=== PATIENT | male | born 1965 | race African-American/Black ===

== ENCOUNTER 2018-06-13 21:51 | Emergency (ER) | payer MEDICAID ==
[~2018-06-13] VITALS: Ht 162.6 cm; Wt 63.0 kg
[2018-06-13] MEDS ORDERED: LEVETIRACETAM 500MG PREMIX 100 ML IV ONE (23:15)
[2018-06-14 04:44] VITALS: BP 104/61
== END 2018-06-14 04:42 | disposition home or self-care (01) ==
LOC: ER 21:51
DX: R56.9 Unspecified convulsions (principal); F17.290 Nicotine dependence, other tobacco product, uncomplicated; Z98.890 Other specified postprocedural states
CPT/HCPCS: 96365; 99283; 99406; J1953

== ENCOUNTER 2018-09-20 07:22 | Emergency (ER) | payer MEDICAID ==
[~2018-09-20] VITALS: Ht 177.8 cm; Wt 75.0 kg
[2018-09-20] MEDS ORDERED: LEVETIRACETAM 1000MG/100ML 100 ML IV ONE (08:00)
[2018-09-20 08:40] LABS: BASOPHILS % 0.2 % (0.0-2.0); EOSINOPHILS % 0.1 % (0.0-5.0); HEMATOCRIT. 36.3 % (42.0-52.0); MEAN CORPUSCULAR HEMOGLOBIN 30.9 pg (28.0-32.0); MEAN CORPUSCULAR VOLUME 93.5 fL (80.0-94.0); MEAN PLATELET VOLUME 9.8 fl (7.4-10.4); MONOCYTES % 2.6 % (2.0-8.0); NEUTROPHILS % 85.1 % (40.0-76.0); PLATELET 87 x1000/uL (130-400); RED BLOOD CELL COUNT 3.88 mill/uL (4.7-6.1); RED CELL DISTRIBUTION WIDTH 18.9 % (11.6-14.6)
[2018-09-20 08:47] LABS: CHLORIDE 97 mEq/L (98-107)
[2018-09-20 08:51] LABS: ETHANOL BLOOD 20 mg/dL
[2018-09-20 08:55] LABS: PROTHROMBIN TIME 10.3 sec (9.6-11.0)
[2018-09-20 11:22] LABS: CLARITY URINE CLEAR (CLEAR); COLOR URINE YELLOW (YELLOW); KETONES URINE 1+ (NEGATIVE); LEUKOCYTE ESTERASE URINE 2+ (NEGATIVE); NITRITE URINE NEGATIVE (NEGATIVE); OCCULT BLOOD URINE 2+ (NEGATIVE); PROTEIN URINE 2+ (NEGATIVE); SPECIFIC GRAVITY URINE 1.022 (1.005-1.030); UROBILINOGEN URINE 0.2 E.U./dL (0.2-1.0)
[2018-09-20 11:45] LABS: *AMPHETAMINES SCREEN URINE NEGATIVE (NEGATIVE); *BARBITURATES SCREEN URINE NEGATIVE (NEGATIVE); *BENZODIAZEPINES SCREEN URINE PRESUMTIVE POSITIVE (NEGATIVE); *COCAINE SCREEN URINE NEGATIVE (NEGATIVE)
[2018-09-20 11:46] LABS: CANNABINOID URINE SCREEN NEGATIVE (NEGATIVE); METHADONE URINE SCREEN NEGATIVE (NEGATIVE); OPIATES URINE SCREEN NEGATIVE (NEGATIVE); PHENCYCLIDINE URINE SCREEN NEGATIVE (NEGATIVE)
[2018-09-20 14:36] VITALS: BP 128/89
== END 2018-09-20 14:37 | disposition home or self-care (01) ==
LOC: ER 07:44
DX: N39.0 Urinary tract infection, site not specified (principal); R56.9 Unspecified convulsions
CPT/HCPCS: 36415; 70450; 80053; 80305; 80320; 81003; 85025; 85610; 87077; 87086; 87186; 96374; 99284; J1953; Z7610; G0480